=== PATIENT | female | born 1965 | race Caucasian/White ===

== ENCOUNTER 2019-02-24 10:04 | Emergency (ER) | payer OTHER ==
[2019-02-24 10:56] LABS: #Basophils 0.1 thou/uL (0.0-0.2); #Eosinphils 0.2 thou/uL (0.0-0.7); #Lymphocytes 2.6 thou/uL (1.20-3.40); #Monocytes 0.6 thou/uL (0.11-0.59); #Neutrophils 5.1 thou/uL (1.40-6.50); %Basophils 1.5 % (0.0-1.0); %Eosinophils 2.1 % (0.0-10.0); %Lymphocytes 30.5 % (21.0-51.0); %Monocytes 6.6 % (0.0-10.0); %Neutrophils 59.4 % (42.0-75.0); Hemoglobin 14.4 g/dL (12.0-16.0); Mean Corpuscular HGB CONC 34.8 g/dL (32.0-36.0); Mean Corpuscular Hemoglobin 31.7 pg (27.0-31.0); Mean Corpuscular Volume 90.9 fL (78.0-98.0); Mean Platelet Volume 7.1 fL (7.4-10.4); Platelet Count 249 thou/uL (130-400); RBC Distribution Width 12.1 % (11.5-14.5); Red Blood Cell (RBC) Count 4.55 mill/uL (4.20-5.40); White Blood Cell (WBC) Count 8.6 thou/uL (4.8-10.8)
[2019-02-24 11:19] LABS: ALT (SGPT) 18 U/L (8-55); AST (SGOT) 18 U/L (5-34); Alkaline Phosphatase 75 U/L (40-110); Anion Gap 12 mmol/L (10-20); BUN (Urea Nitrogen) 21 mg/dL (9.8-20.1); Bilirubin, Total 0.3 mg/dL (0.2-1.2); Calc. Creatinine Clearance 0 mL/min (70-130); Calcium 9.6 mg/dL (7.8-10.44); Carbon Dioxide 21 mmol/L (22-29); Chloride 105 mmol/L (98-107); Estimated GFR-MDRD 33; Globulin 3.4 g/dL (2.4-3.5); Glucose 99 mg/dL (70-105); Lipase 22 U/L (8-78); Potassium 4.3 mmol/L (3.5-5.1); Protein, Total 7.4 g/dL (6.0-8.3); Sodium 134 mmol/L (136-145)
[2019-02-24] MEDS ORDERED: Ondansetron PF 4 MG/2 ML Vial ONE (11:31)
[2019-02-24] MEDS ORDERED: Morphine 4 MG/ML VIAL ONE (11:31)
--- NOTE | 2019-02-24 12:36 | CT ---
EXAM: CT ABDOMEN AND PELVIS HISTORY: Evaluate for incarcerated left inguinal hernia. Left lower quadrant pain, when attempting a standard pick something up off the floor COMPARISON: None. Procedure: Multiple contiguous axial images were obtained and a CT of the abdomen and pelvis with IV contrast. C oronal reformats were performed. FINDINGS: Lower Chest: within normal limits. Vessels: Normal caliber aorta. No periaortic fat stranding Heart: Normal heart size. No significant pericardial fluid Abdomen: Portal vein:Patent Gallbladder: Surgically absent Liver: within normal limits. Pancreas: within normal limits. Spleen: within normal limits. Adrenals: within normal limits. Kidneys: Symmetric enhancement. No obstructive uropathy. Peritoneum: No ascites or free air, no fluid collection. Bowel: Limited evaluation due to lack of oral contrast administration. Slightly prominent proximal sm all bowel loops are nonspecific. Mid and distal small bowel loops are decompressed. Ileocecal junction is unremarkable. Normal caliber appendix. Scattered fecal material in a nondistended, nondil ated colon. Occasional diverticulum. No diverticulitis. Mesentery and Retroperitoneum: Nonspecific aortocaval lymph node measuring 0.7 cm Abdominal Wall: within normal limits. Pelvis: Reproductive Organs: Reproductive organs are unremarkable. Pelvis: No mass, lymphadenopathy, free air or free fluid. Bladder: within normal limits. No evidence of a left or right inguinal hernia Bones: Vacuum disc phenomenon in the lumbosacral junction IMPRESSION: 1. Slightly prominent proximal small bowel loops. Findings are nonspecific. Correlate for early or pa rtial obstructive process versus a developing ileus. 2. No evidence of a left or right inguinal hernia.
[2019-02-24 12:55] LABS: Bacteria/HPF None Seen HPF (None Seen); Bilirubin Negative (Negative); Blood, Urine Negative (Negative); Clarity Clear (Clear); Glucose, Urine (Dipstick) Normal (Negative); Leukocyte Negative Leu/uL (Negative); Nitrite Negative (Negative); Protein, Urine (Dipstick) 200 mg/dL (Neg-Trace); RBC/HPF 0-3 HPF (0-3); Urobilinogen Normal mg/dL (Less than 2)
== END 2019-02-24 14:07 | disposition home or self-care (01) ==
LOC: ERS 10:04
DX: R10.32 Left lower quadrant pain (principal); E03.9 Hypothyroidism, unspecified; I10 Essential (primary) hypertension; F41.9 Anxiety disorder, unspecified; Z79.82 Long term (current) use of aspirin; Z79.899 Other long term (current) drug therapy
CPT/HCPCS: 36415; 74177; 80053; 81003; 81015; 83690; 85025; 96361; 96374; 96375; J2270; J2405

== ENCOUNTER 2019-03-13 12:51 | Outpatient (CLI) | payer OTHER ==
--- NOTE | 2019-03-13 13:35 | ULT ---
Exam: Soft tissue ultrasound HISTORY: Left inguinal pain. Left groin pain after picking up a pill packet off of the floor. Painful knot left groin. Pain. Patient feels a knot. COMPARISON: None Correlation: Abdomen and pelvic CT 02/24/2019 FINDINGS: Targeted sonographic imaging of the left groin demonstrate a hypoechoic focus measuring 1.0 x 1.5 x 1 .3 cm. No significant vascular flow. There does not appear to be any connection with the left inguinal canal. Findings may represent a small hematoma or possible lymph node may be reactive or pos sibly necrotic. Correlation made with recent CT does not demonstrate definite lymphadenopathy or hematoma. As a conservative measure, follow-up imaging in 4-6 weeks is recommended to ensure resoluti on. If soft tissue lesion persists, consider ultrasound-guided biopsy. If there is concern for inguinal hernia, consider general surgical consultation. IMPRESSION: As above.
== END 2019-03-13 12:52 | disposition home or self-care (01) ==
LOC: SCSULT 12:51
PROVIDERS: ATTEND Family Medicine
DX: R10.32 Left lower quadrant pain (principal); M79.9 Soft tissue disorder, unspecified
CPT/HCPCS: 76999

== ENCOUNTER 2021-02-05 01:05 | Inpatient (IN) | payer OTHER, SELFPAY ==
[2021-02-05 02:17] LABS: Actual Bicarbonate (HCO3a) 19.7 mEq/L (22-28); Analyzer IN Cardio ER; CO2 Tension 50.4 mmHg (35.0-45.0); Calcium, Ionized (arterial) 1.15 mmol/L (1.12-1.30); Carboxyhemoglobin (COHb) 0.2 gm% (0.0-3.0); O2 Tension (PaO2), arterial 201.9 mmHg (80.0-100.0); Potassium - ABG Lab 3.39 mmol/L (3.70-5.30)
[2021-02-05 02:20] LABS: pH, Arterial 7.21 (7.35-7.45)
[2021-02-05 02:25] LABS: Puncture Site RRA
[2021-02-05 02:44] LABS: #Basophils 0.1 thou/uL (0.0-0.2); #Eosinphils 0.1 thou/uL (0.0-0.7); #Lymphocytes 0.8 thou/uL (1.20-3.40); #Monocytes 0.6 thou/uL (0.11-0.59); #Neutrophils 8.7 thou/uL (1.40-6.50); %Basophils 0.6 % (0.0-1.0); %Eosinophils 0.9 % (0.0-10.0); %Lymphocytes 8.1 % (21.0-51.0); %Monocytes 5.8 % (0.0-10.0); %Neutrophils 84.6 % (42.0-75.0); Hemoglobin 10.5 g/dL (12.0-16.0); Mean Corpuscular HGB CONC 34.5 g/dL (32.0-36.0); Mean Platelet Volume 7.2 fL (7.4-10.4); Platelet Count 232 thou/uL (130-400); RBC Distribution Width 12.6 % (11.5-14.5); White Blood Cell (WBC) Count 10.2 thou/uL (4.8-10.8)
[2021-02-05 02:56] LABS: SARS-CoV-2 NAA Rapid Test Not Detected (NotDetected)
[2021-02-05 02:58] LABS: ALT (SGPT) 15 U/L (8-55); AST (SGOT) 25 U/L (5-34); Alkaline Phosphatase 143 U/L (40-110); Anion Gap 13 mmol/L (10-20); BUN (Urea Nitrogen) 23 mg/dL (9.8-20.1); Bilirubin, Total 0.2 mg/dL (0.2-1.2); Calc. Creatinine Clearance 0 mL/min (70-130); Calcium 8.8 mg/dL (7.8-10.44); Carbon Dioxide 21 mmol/L (22-29); Chloride 107 mmol/L (98-107); Globulin 3.4 g/dL (2.4-3.5); Glucose 166 mg/dL (70-105); Magnesium 1.6 mg/dL (1.6-2.6); Potassium 4.2 mmol/L (3.5-5.1); Protein, Total 6.4 g/dL (6.0-8.3); Sodium 137 mmol/L (136-145)
[2021-02-05] MEDS ORDERED: Dextrose 50% Abboject 50 ML SYRINGE SLOW IVP PRN (04:10)
[2021-02-05] MEDS ORDERED: Acetaminophen 325 MG TAB PO PRN (04:10)
[2021-02-05] MEDS ORDERED: Acetaminophen 650 MG Suppository PR PRN (04:10)
[2021-02-05] MEDS ORDERED: HumaLOG 300 UNITS/3 ML VIAL SC PRN (04:10)
[2021-02-05] MEDS ORDERED: Dextrose 5% in Water 1,000 ML IV PRN (04:10)
[2021-02-05 07:34] LABS: Troponin I 0.039 ng/mL (< 0.028)
[2021-02-05] MEDS ORDERED: Midazolam HCl 2 mg/2 ml Vial ONE ×6 (11:14→11:37)
[2021-02-05] MEDS ORDERED: Midazolam HCl 5 mg/ml Vial ONE (11:14)
[2021-02-05] MEDS ORDERED: Midazolam HCl 2 mg/2 ml Vial SLOW IVP SCH (12:30)
[2021-02-05] MEDS ORDERED: ALPRAZolam 0.5 MG TAB PO PRN (15:35)
[2021-02-05] MEDS ORDERED: Pancrelipase DR 12,000 1 CAP PO SCH (15:45)
[2021-02-05] MEDS ORDERED: Lorazepam 2 MG/ML VIAL ONE (16:47)
[2021-02-05] MEDS ORDERED: Lorazepam 2 MG/ML VIAL SLOW IVP PRN (17:03)
[2021-02-05] MEDS: Sevelamer Carbonate 800 MG TAB PO SCH (18:37)
[2021-02-05] MEDS: Sodium Bicarbonate Tab 325 MG TAB PO SCH (21:24)
[2021-02-05] MEDS: Melatonin 3 MG TAB PO PRN (21:24)
[2021-02-05] MEDS: Famotidine 20 MG TAB PO SCH (21:24)
[2021-02-05] MEDS: Atorvastatin Calcium 40 MG TAB PO SCH (21:25)
[2021-02-05] MEDS: traZODone HCl 50 MG TAB PO PRN (21:25)
[2021-02-05] MEDS: HYDROcodone/Acetaminophen 5/325 mg Tablet PO PRN (21:25)
[2021-02-05] MEDS: ALPRAZolam 0.5 MG TAB PO SCH (21:25)
[2021-02-06] MEDS: Lorazepam 2 MG/ML VIAL SLOW IVP PRN (01:06)
[2021-02-06 03:55] LABS: #Eosinphils 0.1 thou/uL (0.0-0.7); #Lymphocytes 1.5 thou/uL (1.20-3.40); #Monocytes 0.5 thou/uL (0.11-0.59); #Neutrophils 5.6 thou/uL (1.40-6.50); %Basophils 0.2 % (0.0-1.0); %Eosinophils 0.8 % (0.0-10.0); %Neutrophils 72.1 % (42.0-75.0); Hemoglobin 10.1 g/dL (12.0-16.0); Mean Corpuscular HGB CONC 31.7 g/dL (32.0-36.0); Mean Corpuscular Hemoglobin 31.6 pg (27.0-31.0); Mean Corpuscular Volume 99.5 fL (78.0-98.0); Mean Platelet Volume 7.2 fL (7.4-10.4); Platelet Count 221 thou/uL (130-400); RBC Distribution Width 12.4 % (11.5-14.5); White Blood Cell (WBC) Count 7.7 thou/uL (4.8-10.8)
[2021-02-06 04:07] LABS: Phosphorus 3.7 mg/dL (2.3-4.7)
[2021-02-06 04:09] LABS: ALT (SGPT) 14 U/L (8-55); AST (SGOT) 19 U/L (5-34); Albumin 3.2 g/dL (3.5-5.0); Alkaline Phosphatase 135 U/L (40-110); Anion Gap 13 mmol/L (10-20); BUN (Urea Nitrogen) 22 mg/dL (9.8-20.1); Bilirubin, Total 0.6 mg/dL (0.2-1.2); Calc. Creatinine Clearance 68 mL/min (70-130); Calcium 9.7 mg/dL (7.8-10.44); Carbon Dioxide 23 mmol/L (22-29); Chloride 107 mmol/L (98-107); Globulin 3.7 g/dL (2.4-3.5); Glucose 130 mg/dL (70-105); Magnesium 1.7 mg/dL (1.6-2.6); Protein, Total 6.9 g/dL (6.0-8.3); Sodium 139 mmol/L (136-145)
[2021-02-06 08:45] LABS: Actual Bicarbonate (HCO3a) 25.5 mEq/L (22-28); Base Excess (BEa) 0.8 mEq/L (-2.0 to +3.0); CO2 Tension 41.5 mmHg (35.0-45.0); Calcium, Ionized (arterial) 1.23 mmol/L (1.12-1.30); Carboxyhemoglobin (COHb) 0.5 gm% (0.0-3.0); Hemoglobin (Hb) 10.1 g/dL (12.0-16.0); O2 Tension (PaO2), arterial 110.2 mmHg (80.0-100.0); Potassium - ABG Lab 4.03 mmol/L (3.70-5.30); pH, Arterial 7.41 (7.35-7.45)
[2021-02-06 08:47] LABS: Puncture Site RRA
[2021-02-06 08:48] LABS: ALV-art Gradient 123.125 mmHg (0-20)
[2021-02-06] MEDS: Sevelamer Carbonate 800 MG TAB PO SCH ×3 (08:52→17:30)
[2021-02-06] MEDS: FLUoxetine HCl 20 MG/5 ML UDCUP PO SCH (09:24)
[2021-02-06] MEDS: ALPRAZolam 0.5 MG TAB PO SCH ×3 (09:24→20:38)
[2021-02-06] MEDS: Gabapentin 300 MG CAP PO SCH (09:28)
[2021-02-06] MEDS: Cefepime 1 GM in Sodium Chloride 0.9% 100 ML IVPB SCH ×2 (09:31→20:38)
[2021-02-06] MEDS: Sodium Bicarbonate Tab 325 MG TAB PO SCH ×2 (09:31→20:36)
[2021-02-06] MEDS: HYDROcodone/Acetaminophen 5/325 mg Tablet PO PRN ×2 (11:47→20:36)
[2021-02-06] MEDS ORDERED: hydrALAZINE 20 MG/ML VIAL SLOW IVP PRN ×2 (16:37→16:47)
[2021-02-06] MEDS ORDERED: Amlodipine 10 MG TAB PO SCH (16:45)
[2021-02-06] MEDS: Heparin 5,000 UNITS/ML VIAL SC SCH (17:29)
[2021-02-06] MEDS: Melatonin 3 MG TAB PO PRN (20:38)
[2021-02-06] MEDS: Atorvastatin Calcium 40 MG TAB PO SCH (20:38)
[2021-02-06] MEDS: Famotidine 20 MG TAB PO SCH (20:38)
[2021-02-06] MEDS: traZODone HCl 50 MG TAB PO PRN (20:48)
[2021-02-07] MEDS: Heparin 5,000 UNITS/ML VIAL SC SCH ×4 (00:29→23:23)
[2021-02-07] MEDS: Lorazepam 2 MG/ML VIAL SLOW IVP PRN ×2 (00:30→07:36)
[2021-02-07] MEDS: HYDROcodone/Acetaminophen 5/325 mg Tablet PO PRN ×3 (00:31→19:50)
[2021-02-07 04:12] LABS: #Eosinphils 0.3 thou/uL (0.0-0.7); #Lymphocytes 2.2 thou/uL (1.20-3.40); #Monocytes 0.6 thou/uL (0.11-0.59); #Neutrophils 4.9 thou/uL (1.40-6.50); %Basophils 0.5 % (0.0-1.0); %Eosinophils 4.2 % (0.0-10.0); %Lymphocytes 26.7 % (21.0-51.0); %Monocytes 7.7 % (0.0-10.0); Hemoglobin 10.6 g/dL (12.0-16.0); Mean Corpuscular HGB CONC 33.9 g/dL (32.0-36.0); Mean Corpuscular Hemoglobin 33.2 pg (27.0-31.0); Mean Corpuscular Volume 97.9 fL (78.0-98.0); Mean Platelet Volume 7.1 fL (7.4-10.4); Platelet Count 228 thou/uL (130-400); RBC Distribution Width 12.2 % (11.5-14.5); Red Blood Cell (RBC) Count 3.19 mill/uL (4.20-5.40); White Blood Cell (WBC) Count 8.1 thou/uL (4.8-10.8)
[2021-02-07 04:34] LABS: ALT (SGPT) 14 U/L (8-55); AST (SGOT) 18 U/L (5-34); Albumin 3.2 g/dL (3.5-5.0); Alkaline Phosphatase 143 U/L (40-110); Anion Gap 12 mmol/L (10-20); BUN (Urea Nitrogen) 19 mg/dL (9.8-20.1); Bilirubin, Total 0.6 mg/dL (0.2-1.2); Calc. Creatinine Clearance 79 mL/min (70-130); Carbon Dioxide 25 mmol/L (22-29); Chloride 103 mmol/L (98-107); Globulin 3.9 g/dL (2.4-3.5); Glucose 142 mg/dL (70-105); Magnesium 1.7 mg/dL (1.6-2.6); Phosphorus 4.2 mg/dL (2.3-4.7); Potassium 3.7 mmol/L (3.5-5.1); Protein, Total 7.1 g/dL (6.0-8.3); Sodium 136 mmol/L (136-145)
[2021-02-07] MEDS: Sevelamer Carbonate 800 MG TAB PO SCH ×3 (07:36→16:11)
[2021-02-07] MEDS: Amlodipine 10 MG TAB PO SCH (09:23)
[2021-02-07] MEDS: Gabapentin 300 MG CAP PO SCH (09:23)
[2021-02-07] MEDS: ALPRAZolam 0.5 MG TAB PO SCH ×3 (09:24→19:50)
[2021-02-07] MEDS: FLUoxetine HCl 20 MG/5 ML UDCUP PO SCH (09:29)
[2021-02-07] MEDS: Sodium Bicarbonate Tab 325 MG TAB PO SCH ×2 (09:30→19:49)
[2021-02-07] MEDS: Cefepime 1 GM in Sodium Chloride 0.9% 100 ML IVPB SCH ×2 (09:45→19:56)
[2021-02-07 15:48] VITALS: BMI 44.1
[2021-02-07] MEDS: Famotidine 20 MG TAB PO SCH (19:49)
[2021-02-07] MEDS: Atorvastatin Calcium 40 MG TAB PO SCH (19:50)
[2021-02-08] MEDS: Lorazepam 2 MG/ML VIAL SLOW IVP PRN (02:33)
[2021-02-08] MEDS: HYDROcodone/Acetaminophen 5/325 mg Tablet PO PRN ×2 (04:02→20:09)
[2021-02-08] MEDS: ALPRAZolam 0.5 MG TAB PO SCH ×3 (08:36→20:04)
[2021-02-08] MEDS: Sevelamer Carbonate 800 MG TAB PO SCH ×3 (08:36→18:34)
[2021-02-08] MEDS: Sodium Bicarbonate Tab 325 MG TAB PO SCH ×2 (08:36→20:04)
[2021-02-08] MEDS: Amlodipine 10 MG TAB PO SCH (08:36)
[2021-02-08] MEDS: Cefepime 1 GM in Sodium Chloride 0.9% 100 ML IVPB SCH ×2 (08:37→20:04)
[2021-02-08] MEDS: Gabapentin 300 MG CAP PO SCH (08:53)
[2021-02-08] MEDS: FLUoxetine HCl 20 MG/5 ML UDCUP PO SCH (11:23)
[2021-02-08] MEDS: Heparin 5,000 UNITS/ML VIAL SC SCH ×2 (11:24→20:03)
[2021-02-08] MEDS: HumaLOG 300 UNITS/3 ML VIAL SC PRN (11:38)
[2021-02-08] MEDS ORDERED: Pancrelipase DR 12,000 1 CAP FS SCH (12:45)
[2021-02-08] MEDS ORDERED: Sodium Bicarbonate Tab 325 MG TAB PER TUBE SCH (12:45)
[2021-02-08 17:43] LABS: #Basophils 0.1 thou/uL (0.0-0.2); #Eosinphils 0.3 thou/uL (0.0-0.7); #Lymphocytes 1.9 thou/uL (1.20-3.40); #Monocytes 0.5 thou/uL (0.11-0.59); #Neutrophils 5.5 thou/uL (1.40-6.50); %Basophils 0.9 % (0.0-1.0); %Monocytes 6.3 % (0.0-10.0); %Neutrophils 65.9 % (42.0-75.0); Hemoglobin 11.1 g/dL (12.0-16.0); Mean Corpuscular HGB CONC 33.9 g/dL (32.0-36.0); Mean Corpuscular Hemoglobin 32.9 pg (27.0-31.0); Mean Corpuscular Volume 96.9 fL (78.0-98.0); Platelet Count 286 thou/uL (130-400); Red Blood Cell (RBC) Count 3.38 mill/uL (4.20-5.40); White Blood Cell (WBC) Count 8.3 thou/uL (4.8-10.8)
[2021-02-08 17:57] LABS: ALT (SGPT) 18 U/L (8-55); AST (SGOT) 20 U/L (5-34); Albumin 3.5 g/dL (3.5-5.0); Alkaline Phosphatase 157 U/L (40-110); Anion Gap 14 mmol/L (10-20); BUN (Urea Nitrogen) 19 mg/dL (9.8-20.1); Bilirubin, Total 0.4 mg/dL (0.2-1.2); Calc. Creatinine Clearance 89 mL/min (70-130); Calcium 9.7 mg/dL (7.8-10.44); Carbon Dioxide 27 mmol/L (22-29); Chloride 101 mmol/L (98-107); Globulin 3.7 g/dL (2.4-3.5); Glucose 124 mg/dL (70-105); Magnesium 1.7 mg/dL (1.6-2.6); Phosphorus 4.6 mg/dL (2.3-4.7); Potassium 3.9 mmol/L (3.5-5.1); Protein, Total 7.2 g/dL (6.0-8.3); Sodium 138 mmol/L (136-145)
[2021-02-08] MEDS: Atorvastatin Calcium 40 MG TAB PO SCH (20:04)
[2021-02-08] MEDS: Famotidine 20 MG TAB PO SCH (20:04)
[2021-02-08] MEDS: Melatonin 3 MG TAB PO PRN (20:07)
[2021-02-09] MEDS: HYDROcodone/Acetaminophen 5/325 mg Tablet PO PRN ×5 (01:01→22:50)
[2021-02-09] MEDS: traZODone HCl 50 MG TAB PO PRN ×2 (01:01→19:58)
[2021-02-09] MEDS: Heparin 5,000 UNITS/ML VIAL SC SCH ×3 (04:19→19:59)
[2021-02-09 06:24] LABS: #Eosinphils 0.3 thou/uL (0.0-0.7); #Lymphocytes 1.8 thou/uL (1.20-3.40); #Monocytes 0.5 thou/uL (0.11-0.59); #Neutrophils 5.1 thou/uL (1.40-6.50); %Basophils 0.6 % (0.0-1.0); %Eosinophils 4.1 % (0.0-10.0); %Lymphocytes 23.3 % (21.0-51.0); %Monocytes 6.7 % (0.0-10.0); %Neutrophils 65.2 % (42.0-75.0); Hemoglobin 10.9 g/dL (12.0-16.0); Mean Corpuscular HGB CONC 33.3 g/dL (32.0-36.0); Mean Corpuscular Hemoglobin 31.8 pg (27.0-31.0); Mean Corpuscular Volume 95.6 fL (78.0-98.0); Platelet Count 275 thou/uL (130-400); Red Blood Cell (RBC) Count 3.42 mill/uL (4.20-5.40); White Blood Cell (WBC) Count 7.8 thou/uL (4.8-10.8)
[2021-02-09] MEDS: HumaLOG 300 UNITS/3 ML VIAL SC PRN ×2 (06:40→12:57)
[2021-02-09 06:51] LABS: Anion Gap 15 mmol/L (10-20); BUN (Urea Nitrogen) 22 mg/dL (9.8-20.1); Calc. Creatinine Clearance 86 mL/min (70-130); Calcium 9.5 mg/dL (7.8-10.44); Carbon Dioxide 27 mmol/L (22-29); Chloride 99 mmol/L (98-107); Glucose 187 mg/dL (70-105); Potassium 3.9 mmol/L (3.5-5.1); Sodium 137 mmol/L (136-145)
[2021-02-09] MEDS: ALPRAZolam 0.5 MG TAB PO SCH ×3 (09:20→19:58)
[2021-02-09] MEDS: Sodium Bicarbonate Tab 325 MG TAB PO SCH ×2 (09:20→19:58)
[2021-02-09] MEDS: Sevelamer Carbonate 800 MG TAB PO SCH ×3 (09:20→17:41)
[2021-02-09] MEDS: FLUoxetine HCl 20 MG/5 ML UDCUP PO SCH (09:20)
[2021-02-09] MEDS: Amlodipine 10 MG TAB PO SCH (09:20)
[2021-02-09] MEDS: Gabapentin 300 MG CAP PO SCH (09:20)
[2021-02-09] MEDS: Cefepime 1 GM in Sodium Chloride 0.9% 100 ML IVPB SCH ×2 (09:21→19:55)
[2021-02-09] MEDS: Lorazepam 2 MG/ML VIAL SLOW IVP PRN (12:52)
[2021-02-09] MEDS: Atorvastatin Calcium 40 MG TAB PO SCH (19:56)
[2021-02-09] MEDS: Famotidine 20 MG TAB PO SCH (19:59)
[2021-02-09] MEDS: Melatonin 3 MG TAB PO PRN (22:50)
[2021-02-10] MEDS: Heparin 5,000 UNITS/ML VIAL SC SCH ×3 (04:19→20:46)
[2021-02-10] MEDS: HYDROcodone/Acetaminophen 5/325 mg Tablet PO PRN ×4 (04:19→22:05)
[2021-02-10] MEDS: HumaLOG 300 UNITS/3 ML VIAL SC PRN ×2 (05:52→12:18)
[2021-02-10 06:58] LABS: #Eosinphils 0.4 thou/uL (0.0-0.7); #Lymphocytes 2.2 thou/uL (1.20-3.40); #Monocytes 0.5 thou/uL (0.11-0.59); #Neutrophils 5.2 thou/uL (1.40-6.50); %Basophils 0.2 % (0.0-1.0); %Eosinophils 4.5 % (0.0-10.0); %Lymphocytes 26.5 % (21.0-51.0); %Monocytes 5.5 % (0.0-10.0); %Neutrophils 63.4 % (42.0-75.0); Hemoglobin 11.6 g/dL (12.0-16.0); Mean Corpuscular HGB CONC 34.2 g/dL (32.0-36.0); Mean Corpuscular Volume 96.4 fL (78.0-98.0); Mean Platelet Volume 7.1 fL (7.4-10.4); Platelet Count 285 thou/uL (130-400); RBC Distribution Width 12.2 % (11.5-14.5); Red Blood Cell (RBC) Count 3.52 mill/uL (4.20-5.40); White Blood Cell (WBC) Count 8.2 thou/uL (4.8-10.8)
[2021-02-10 07:18] LABS: Anion Gap 14 mmol/L (10-20); BUN (Urea Nitrogen) 30 mg/dL (9.8-20.1); Calc. Creatinine Clearance 81 mL/min (70-130); Calcium 9.6 mg/dL (7.8-10.44); Carbon Dioxide 27 mmol/L (22-29); Chloride 100 mmol/L (98-107); Glucose 224 mg/dL (70-105); Potassium 4.3 mmol/L (3.5-5.1); Sodium 137 mmol/L (136-145)
[2021-02-10] MEDS: Amlodipine 10 MG TAB PO SCH (09:24)
[2021-02-10] MEDS: ALPRAZolam 0.5 MG TAB PO SCH ×3 (09:24→20:46)
[2021-02-10] MEDS: Gabapentin 300 MG CAP PO SCH ×3 (09:24→20:46)
[2021-02-10] MEDS: Sodium Bicarbonate Tab 325 MG TAB PO SCH ×2 (09:24→20:46)
[2021-02-10] MEDS: FLUoxetine HCl 20 MG/5 ML UDCUP PO SCH (09:26)
[2021-02-10] MEDS: Cefepime 1 GM in Sodium Chloride 0.9% 100 ML IVPB SCH ×2 (09:26→20:47)
[2021-02-10] MEDS: Sevelamer Carbonate 800 MG TAB PO SCH ×3 (09:28→17:00)
[2021-02-10] MEDS: Scopolamine 1.5 mg/72 hour Patch TD SCH (13:40)
[2021-02-10] MEDS: Famotidine 20 MG TAB PO SCH (20:46)
[2021-02-10] MEDS: Atorvastatin Calcium 40 MG TAB PO SCH (20:46)
[2021-02-11] MEDS: HYDROcodone/Acetaminophen 5/325 mg Tablet PO PRN ×2 (03:00→21:39)
[2021-02-11] MEDS: Lorazepam 2 MG/ML VIAL SLOW IVP PRN (03:01)
[2021-02-11] MEDS: Heparin 5,000 UNITS/ML VIAL SC SCH ×3 (05:35→21:38)
[2021-02-11 06:08] LABS: #Eosinphils 0.4 thou/uL (0.0-0.7); #Lymphocytes 2.1 thou/uL (1.20-3.40); #Monocytes 0.5 thou/uL (0.11-0.59); #Neutrophils 5.6 thou/uL (1.40-6.50); %Basophils 0.5 % (0.0-1.0); %Eosinophils 5.1 % (0.0-10.0); %Lymphocytes 23.7 % (21.0-51.0); %Monocytes 6.2 % (0.0-10.0); %Neutrophils 64.5 % (42.0-75.0); Hemoglobin 11.5 g/dL (12.0-16.0); Mean Corpuscular HGB CONC 33.7 g/dL (32.0-36.0); Mean Corpuscular Hemoglobin 32.7 pg (27.0-31.0); Mean Platelet Volume 7.3 fL (7.4-10.4); Platelet Count 313 thou/uL (130-400); RBC Distribution Width 12.1 % (11.5-14.5); Red Blood Cell (RBC) Count 3.52 mill/uL (4.20-5.40); White Blood Cell (WBC) Count 8.7 thou/uL (4.8-10.8)
[2021-02-11 06:27] LABS: Anion Gap 15 mmol/L (10-20); BUN (Urea Nitrogen) 31 mg/dL (9.8-20.1); Calc. Creatinine Clearance 80 mL/min (70-130); Calcium 10.1 mg/dL (7.8-10.44); Carbon Dioxide 27 mmol/L (22-29); Chloride 100 mmol/L (98-107); Glucose 182 mg/dL (70-105); Potassium 4.1 mmol/L (3.5-5.1); Sodium 138 mmol/L (136-145)
[2021-02-11] MEDS: Cefepime 1 GM in Sodium Chloride 0.9% 100 ML IVPB SCH ×2 (07:33→21:40)
[2021-02-11] MEDS: Amlodipine 10 MG TAB PO SCH (07:36)
[2021-02-11] MEDS: ALPRAZolam 0.5 MG TAB PO SCH ×3 (07:36→21:40)
[2021-02-11] MEDS: Gabapentin 300 MG CAP PO SCH ×3 (07:37→21:39)
[2021-02-11] MEDS: Sodium Bicarbonate Tab 325 MG TAB PO SCH ×2 (07:37→21:40)
[2021-02-11] MEDS: Sevelamer Carbonate 800 MG TAB PO SCH ×3 (07:37→17:40)
[2021-02-11] MEDS: FLUoxetine HCl 20 MG/5 ML UDCUP PO SCH (07:40)
[2021-02-11] MEDS ORDERED: Sodium Bicarbonate Tab 325 MG TAB PER TUBE PRN (13:45)
[2021-02-11] MEDS ORDERED: Pancrelipase DR 12,000 1 CAP FS PRN (13:45)
[2021-02-11] MEDS: Atorvastatin Calcium 40 MG TAB PO SCH (21:38)
[2021-02-11] MEDS: Famotidine 20 MG TAB PO SCH (21:39)
[2021-02-11] MEDS: traZODone HCl 50 MG TAB PO PRN (22:30)
[2021-02-11] MEDS: Melatonin 3 MG TAB PO PRN (22:30)
[2021-02-12] MEDS: Heparin 5,000 UNITS/ML VIAL SC SCH ×3 (04:11→21:38)
[2021-02-12] MEDS: HYDROcodone/Acetaminophen 5/325 mg Tablet PO PRN ×5 (04:12→21:37)
[2021-02-12 06:40] LABS: #Basophils 0.1 thou/uL (0.0-0.2); #Eosinphils 0.4 thou/uL (0.0-0.7); #Lymphocytes 1.9 thou/uL (1.20-3.40); #Monocytes 0.5 thou/uL (0.11-0.59); #Neutrophils 4.9 thou/uL (1.40-6.50); %Eosinophils 4.7 % (0.0-10.0); %Lymphocytes 24.9 % (21.0-51.0); %Neutrophils 63.4 % (42.0-75.0); Hemoglobin 10.9 g/dL (12.0-16.0); Mean Corpuscular HGB CONC 35.5 g/dL (32.0-36.0); Mean Corpuscular Hemoglobin 34.1 pg (27.0-31.0); Mean Corpuscular Volume 96.1 fL (78.0-98.0); Mean Platelet Volume 7.1 fL (7.4-10.4); Platelet Count 289 thou/uL (130-400); RBC Distribution Width 12.1 % (11.5-14.5); Red Blood Cell (RBC) Count 3.19 mill/uL (4.20-5.40); White Blood Cell (WBC) Count 7.7 thou/uL (4.8-10.8)
[2021-02-12 06:55] LABS: Anion Gap 14 mmol/L (10-20); BUN (Urea Nitrogen) 32 mg/dL (9.8-20.1); Calc. Creatinine Clearance 81 mL/min (70-130); Calcium 10.3 mg/dL (7.8-10.44); Carbon Dioxide 27 mmol/L (22-29); Chloride 102 mmol/L (98-107); Glucose 179 mg/dL (70-105); Potassium 4.1 mmol/L (3.5-5.1); Sodium 139 mmol/L (136-145)
[2021-02-12] MEDS: Sevelamer Carbonate 800 MG TAB PO SCH ×3 (08:38→16:11)
[2021-02-12] MEDS: Sodium Bicarbonate Tab 325 MG TAB PO SCH ×2 (08:38→21:36)
[2021-02-12] MEDS: Gabapentin 300 MG CAP PO SCH ×3 (08:38→21:38)
[2021-02-12] MEDS: ALPRAZolam 0.5 MG TAB PO SCH ×3 (08:39→21:36)
[2021-02-12] MEDS: FLUoxetine HCl 20 MG/5 ML UDCUP PO SCH (08:39)
[2021-02-12] MEDS: Cefepime 1 GM in Sodium Chloride 0.9% 100 ML IVPB SCH (08:39)
[2021-02-12] MEDS: Amlodipine 10 MG TAB PO SCH (08:39)
[2021-02-12] MEDS: Atorvastatin Calcium 40 MG TAB PO SCH (21:36)
[2021-02-12] MEDS: Famotidine 20 MG TAB PO SCH (21:36)
[2021-02-12] MEDS: traZODone HCl 50 MG TAB PO PRN (21:37)
[2021-02-13 01:05] LABS: SARS-CoV-2 PCR by NAA Not Detected (NotDetected)
[2021-02-13] MEDS: Heparin 5,000 UNITS/ML VIAL SC SCH ×3 (03:45→19:58)
[2021-02-13 06:03] LABS: #Basophils 0.1 thou/uL (0.0-0.2); #Eosinphils 0.4 thou/uL (0.0-0.7); #Lymphocytes 2.4 thou/uL (1.20-3.40); #Monocytes 0.6 thou/uL (0.11-0.59); #Neutrophils 5.9 thou/uL (1.40-6.50); %Basophils 0.7 % (0.0-1.0); %Lymphocytes 25.6 % (21.0-51.0); %Monocytes 6.3 % (0.0-10.0); %Neutrophils 63.3 % (42.0-75.0); Hemoglobin 11.2 g/dL (12.0-16.0); Mean Corpuscular HGB CONC 32.3 g/dL (32.0-36.0); Mean Corpuscular Hemoglobin 30.8 pg (27.0-31.0); Mean Corpuscular Volume 95.4 fL (78.0-98.0); Mean Platelet Volume 7.6 fL (7.4-10.4); Platelet Count 286 thou/uL (130-400); RBC Distribution Width 12.2 % (11.5-14.5); Red Blood Cell (RBC) Count 3.65 mill/uL (4.20-5.40); White Blood Cell (WBC) Count 9.3 thou/uL (4.8-10.8)
[2021-02-13 06:22] LABS: Anion Gap 12 mmol/L (10-20); BUN (Urea Nitrogen) 32 mg/dL (9.8-20.1); Calc. Creatinine Clearance 82 mL/min (70-130); Calcium 10.6 mg/dL (7.8-10.44); Carbon Dioxide 29 mmol/L (22-29); Chloride 99 mmol/L (98-107); Glucose 162 mg/dL (70-105); Potassium 4.2 mmol/L (3.5-5.1); Sodium 136 mmol/L (136-145)
[2021-02-13] MEDS: Sevelamer Carbonate 800 MG TAB PO SCH ×3 (08:11→17:16)
[2021-02-13] MEDS: Gabapentin 300 MG CAP PO SCH ×3 (08:11→19:57)
[2021-02-13] MEDS: ALPRAZolam 0.5 MG TAB PO SCH ×3 (08:13→19:56)
[2021-02-13] MEDS: Sodium Bicarbonate Tab 325 MG TAB PO SCH ×2 (08:14→19:57)
[2021-02-13] MEDS: Amlodipine 10 MG TAB PO SCH (08:17)
[2021-02-13] MEDS: FLUoxetine HCl 20 MG/5 ML UDCUP PO SCH (08:59)
[2021-02-13] MEDS ORDERED: Lorazepam 2 MG/ML VIAL SLOW IVP PRN (12:54)
[2021-02-13] MEDS: Scopolamine 1.5 mg/72 hour Patch TD SCH (13:28)
[2021-02-13] MEDS: Morphine 2 MG/ML VIAL SLOW IVP PRN ×2 (13:28→21:02)
[2021-02-13] MEDS: Atorvastatin Calcium 40 MG TAB PO SCH (19:57)
[2021-02-13] MEDS: Famotidine 20 MG TAB PO SCH (19:57)
[2021-02-14] MEDS: Morphine 2 MG/ML VIAL SLOW IVP PRN ×2 (00:30→03:56)
[2021-02-14] MEDS: FLUoxetine HCl 20 MG/5 ML UDCUP PO SCH (08:41)
[2021-02-14] MEDS: Amlodipine 10 MG TAB PO SCH (08:41)
[2021-02-14] MEDS: ALPRAZolam 0.5 MG TAB PO SCH ×3 (08:41→20:30)
[2021-02-14] MEDS: Gabapentin 300 MG CAP PO SCH ×3 (08:41→20:30)
[2021-02-14] MEDS: Sodium Bicarbonate Tab 325 MG TAB PO SCH ×2 (08:41→20:31)
[2021-02-14] MEDS: Sevelamer Carbonate 800 MG TAB PO SCH ×2 (08:41→17:41)
[2021-02-14] MEDS ORDERED: PROPOFOL 200 MG/20 ML VIAL ONE (10:39)
[2021-02-14] MEDS ORDERED: Ondansetron PF 4 MG/2 ML Vial ONE (11:24)
[2021-02-14] MEDS: Heparin 5,000 UNITS/ML VIAL SC SCH ×2 (17:41→20:31)
[2021-02-14] MEDS: Melatonin 3 MG TAB PO PRN (20:30)
[2021-02-14] MEDS: Famotidine 20 MG TAB PO SCH (20:31)
[2021-02-14] MEDS: Atorvastatin Calcium 40 MG TAB PO SCH (20:31)
[2021-02-15] MEDS: Sevelamer Carbonate 800 MG TAB PO SCH ×3 (08:24→16:58)
[2021-02-15] MEDS: Amlodipine 10 MG TAB PO SCH (08:24)
[2021-02-15] MEDS: Sodium Bicarbonate Tab 325 MG TAB PO SCH ×2 (08:24→20:26)
[2021-02-15] MEDS: Gabapentin 300 MG CAP PO SCH ×3 (08:25→20:28)
[2021-02-15] MEDS: ALPRAZolam 0.5 MG TAB PO SCH ×3 (08:26→20:27)
[2021-02-15] MEDS: HYDROcodone/Acetaminophen 5/325 mg Tablet PO PRN (08:34)
[2021-02-15] MEDS: FLUoxetine HCl 20 MG/5 ML UDCUP PO SCH (08:34)
[2021-02-15] MEDS: Heparin 5,000 UNITS/ML VIAL SC SCH ×3 (11:49→20:57)
[2021-02-15] MEDS: Morphine 2 MG/ML VIAL SLOW IVP PRN (20:22)
[2021-02-15] MEDS: Atorvastatin Calcium 40 MG TAB PO SCH (20:28)
[2021-02-15] MEDS: Famotidine 20 MG TAB PO SCH (20:28)
[2021-02-15] MEDS: Melatonin 3 MG TAB PO PRN (20:42)
[2021-02-16] MEDS: Heparin 5,000 UNITS/ML VIAL SC SCH ×2 (04:35→12:30)
[2021-02-16] MEDS: Morphine 2 MG/ML VIAL SLOW IVP PRN ×2 (04:36→08:51)
[2021-02-16] MEDS: Sodium Bicarbonate Tab 325 MG TAB PO SCH (08:47)
[2021-02-16] MEDS: FLUoxetine HCl 20 MG/5 ML UDCUP PO SCH (08:47)
[2021-02-16] MEDS: Amlodipine 10 MG TAB PO SCH (08:48)
[2021-02-16] MEDS: Sevelamer Carbonate 800 MG TAB PO SCH (08:48)
[2021-02-16] MEDS: ALPRAZolam 0.5 MG TAB PO SCH (08:48)
[2021-02-16] MEDS: Gabapentin 300 MG CAP PO SCH (08:48)
[2021-02-16] MEDS: Scopolamine 1.5 mg/72 hour Patch TD SCH (12:37)
[2021-02-16 13:28] VITALS: BP 137/75; TEMP 98.4
== END 2021-02-16 12:52 | DRG 208 ==
LOC: ERS 01:05 → CCU 04:32 → T4-A 02-07 18:55
PROVIDERS: ADMIT Student in an Organized Health Care Education/Training Program; ATTEND Family Medicine
PROC: 5A1945Z Respiratory Ventilation, 24-96 Consecutive Hours (ICD-10-PCS; principal; 2021-02-05)
PROC: 0B21XFZ Change Tracheostomy Device in Trachea, External Approach (ICD-10-PCS; 2021-02-05)
PROC: 0BJ08ZZ Inspection of Tracheobronchial Tree, Via Natural or Artificial Opening Endoscopic (ICD-10-PCS; 2021-02-05)
PROC: 0DH63UZ Insertion of Feeding Device into Stomach, Percutaneous Approach (ICD-10-PCS; 2021-02-14)
DX: J95.03 Malfunction of tracheostomy stoma (principal); J96.21 Acute and chronic respiratory failure with hypoxia; J81.0 Acute pulmonary edema; J15.9 Unspecified bacterial pneumonia; Z68.41 Body mass index [BMI] 40.0-44.9, adult; N17.9 Acute kidney failure, unspecified; Y83.8 Other surgical procedures as the cause of abnormal reaction of the patient, or of later complication, without mention of misadventure at the time of the procedure; Z20.822 Contact with and (suspected) exposure to COVID-19; E78.5 Hyperlipidemia, unspecified; E78.00 Pure hypercholesterolemia, unspecified; E03.9 Hypothyroidism, unspecified; I10 Essential (primary) hypertension; I16.0 Hypertensive urgency; I95.9 Hypotension, unspecified; D64.9 Anemia, unspecified; F41.9 Anxiety disorder, unspecified; T17.990A Other foreign object in respiratory tract, part unspecified in causing asphyxiation, initial encounter; E66.9 Obesity, unspecified; E11.40 Type 2 diabetes mellitus with diabetic neuropathy, unspecified; R13.12 Dysphagia, oropharyngeal phase; E11.65 Type 2 diabetes mellitus with hyperglycemia; Z88.8 Allergy status to other drugs, medicaments and biological substances; Z79.82 Long term (current) use of aspirin; Z79.899 Other long term (current) drug therapy; Z79.890 Hormone replacement therapy; Z79.4 Long term (current) use of insulin; Z79.51 Long term (current) use of inhaled steroids; Z86.16 Personal history of COVID-19; Z90.49 Acquired absence of other specified parts of digestive tract; Z87.891 Personal history of nicotine dependence; I25.2 Old myocardial infarction
CPT/HCPCS: 36415; 36416; 36600; 71045; 74018; 74230; 80048; 80053; 82805; 83735; 83880; 84100; 84484; 85025; 87070; 87205; 93005; 94002; 94003; 94640; 96374; J0690; J0692; J1644; J1815; J2060; J2250; J2270; J2405; J2704; J3490; U0002; U0003; U0005

== ENCOUNTER 2021-02-24 18:14 | Inpatient (IN) | payer OTHER, SELFPAY ==
[~2021-02-24 18:14] MED LIST: Iopamidol-370 76% 500 ML 1 ML ONE
[2021-02-24] MEDS ORDERED: Norepinephrine 8 MG/0.9% NS 250 ML ONE (18:25)
[2021-02-24] MEDS ORDERED: Fentanyl CADD 100 ML IV SCH (18:30)
[2021-02-24] MEDS ORDERED: Dexamethasone 10 MG/ML VIAL ONE (18:31)
[2021-02-24 18:43] LABS: #Basophils 0.1 thou/uL (0.0-0.2); #Eosinphils 0.2 thou/uL (0.0-0.7); #Lymphocytes 1.8 thou/uL (1.20-3.40); #Monocytes 0.6 thou/uL (0.11-0.59); #Neutrophils 8.8 thou/uL (1.40-6.50); %Basophils 0.7 % (0.0-1.0); %Eosinophils 1.6 % (0.0-10.0); %Lymphocytes 15.7 % (21.0-51.0); %Monocytes 5.4 % (0.0-10.0); %Neutrophils 76.7 % (42.0-75.0); Hemoglobin 12.2 g/dL (12.0-16.0); Mean Corpuscular HGB CONC 32.9 g/dL (32.0-36.0); Mean Corpuscular Hemoglobin 31.4 pg (27.0-31.0); Mean Corpuscular Volume 95.4 fL (78.0-98.0); Mean Platelet Volume 7.5 fL (7.4-10.4); Platelet Count 393 thou/uL (130-400); RBC Distribution Width 12.4 % (11.5-14.5); White Blood Cell (WBC) Count 11.5 thou/uL (4.8-10.8)
[2021-02-24 18:53] LABS: ALT (SGPT) 37 U/L (8-55); AST (SGOT) 69 U/L (5-34); Albumin 3.8 g/dL (3.5-5.0); Alkaline Phosphatase 252 U/L (40-110); Anion Gap 15 mmol/L (10-20); BUN (Urea Nitrogen) 40 mg/dL (9.8-20.1); Bilirubin, Total 0.3 mg/dL (0.2-1.2); Calc. Creatinine Clearance 0 mL/min (70-130); Calcium 10.3 mg/dL (7.8-10.44); Carbon Dioxide 28 mmol/L (22-29); Chloride 97 mmol/L (98-107); Globulin 4.3 g/dL (2.4-3.5); Glucose 226 mg/dL (70-105); Potassium 3.3 mmol/L (3.5-5.1); Protein, Total 8.1 g/dL (6.0-8.3); Sodium 137 mmol/L (136-145)
[2021-02-24] MEDS ORDERED: Propofol 1,000 MG/100 ML VIAL IV ONE (19:04)
[2021-02-24 19:07] LABS: Analyzer IN Cardio ER; CO2 Tension 42.2 mmHg (35.0-45.0); Calcium, Ionized (arterial) 1.21 mmol/L (1.12-1.30); Carboxyhemoglobin (COHb) 0.1 gm% (0.0-3.0); Hemoglobin (Hb) 14.4 g/dL (12.0-16.0); O2 Tension (PaO2), arterial 207.4 mmHg (80.0-100.0); Potassium - ABG Lab 3.19 mmol/L (3.70-5.30); pH, Arterial 7.39 (7.35-7.45)
[2021-02-24 19:13] LABS: Puncture Site RRA
[2021-02-24 19:22] LABS: Bacteria/HPF None Seen HPF (None Seen); Bilirubin Negative (Negative); Blood, Urine Negative (Negative); Clarity Clear (Clear); Glucose, Urine (Dipstick) Normal (Negative); Ketone, Urine Negative (Negative); Leukocyte Negative Leu/uL (Negative); Nitrite Negative (Negative); Protein, Urine (Dipstick) 200 mg/dL (Neg-Trace); RBC/HPF 0-3 HPF (0-3); Specific Gravity, Urine 1.013 (1.002-1.036); Squamous Epithelial 0-3 HPF (0-3); Urobilinogen Normal mg/dL (Less than 2); WBC/HPF 0-3 HPF (0-3); pH, Urine 6.5 (5.0-9.0)
[2021-02-24] MEDS ORDERED: Vancomycin 1 GM/200 ML BAG ONE (20:05)
[2021-02-24] MEDS ORDERED: Piperacillin/Tazobactam 4.5 GM in Sodium Chloride 0.9% 100 ML IVPB SCH (20:15)
[2021-02-24] MEDS ORDERED: Ondansetron ODT 4 MG TAB PO PRN (21:29)
[2021-02-24] MEDS ORDERED: Acetaminophen 650 MG Suppository PR PRN (21:29)
[2021-02-24] MEDS ORDERED: Acetaminophen 325 MG TAB PO PRN (21:29)
[2021-02-24] MEDS ORDERED: Ondansetron PF 4 MG/2 ML Vial IVP PRN (21:29)
[2021-02-24] MEDS ORDERED: Ventilator Sedation Protocol 1 EACH FS SCH (21:30)
[2021-02-24] MEDS ORDERED: Midazolam HCl 5 mg/ml Vial ONE (21:37)
[2021-02-24] MEDS ORDERED: DISCONTINUE PREVIOUS NARCOTIC PAIN MEDICATIONS AND BENZODIAZEPINES FS SCH (22:00)
[2021-02-24] MEDS ORDERED: Propofol BOLUS 1,000 MG/100 ML VIAL IV PRN (22:00)
[2021-02-24] MEDS ORDERED: Potassium Chloride 40 MEQ in Premix Bag 1 BAG IVPB SCH (22:00)
[2021-02-24] MEDS ORDERED: Fentanyl BOLUS 250 ML IVPB PRN (22:00)
[2021-02-24] MEDS ORDERED: Propofol 1,000 MG/100 ML VIAL IV PRN (22:00)
[2021-02-24 22:23] LABS: SARS-CoV-2 NAA Rapid Test Not Detected (NotDetected)
[2021-02-24] MEDS ORDERED: Dextrose 5% in Water 1,000 ML IV PRN (22:30)
[2021-02-24] MEDS ORDERED: Dextrose 50% Abboject 50 ML SYRINGE SLOW IVP PRN (22:30)
[2021-02-24] MEDS ORDERED: HumaLOG 300 UNITS/3 ML VIAL SC PRN (22:30)
[2021-02-24] MEDS ORDERED: Piperacillin/Tazobactam 3.375 GM in Sodium Chloride 0.9% 100 ML IVPB SCH (22:45)
[2021-02-24 23:50] LABS: Magnesium 1.7 mg/dL (1.6-2.6)
[2021-02-25] MEDS ORDERED: Piperacillin/Tazobactam 3.375 GM in Sodium Chloride 0.9% 100 ML IVPB SCH (01:00)
[2021-02-25] MEDS ORDERED: Propofol 1,000 MG/100 ML VIAL IV ONE ×2 (01:23→14:11)
[2021-02-25] MEDS ORDERED: Vancomycin 1 GM in Premix Bag 1 BAG IVPB SCH (01:30)
[2021-02-25] MEDS ORDERED: Potassium Chloride 20 MEQ/100 ML PREMIX BAG ONE ×2 (02:37→02:38)
[2021-02-25] MEDS ORDERED: Piperacillin/Tazobactam 3.375 GM VIAL ONE ×2 (02:37→12:39)
[2021-02-25] MEDS: Potassium Chloride 20 MEQ in Premix Bag 1 BAG IVPB SCH ×2 (03:00→04:16)
[2021-02-25] MEDS ORDERED: HumaLOG 300 UNITS/3 ML VIAL ONE (07:43)
[2021-02-25] MEDS: HumaLOG 300 UNITS/3 ML VIAL SC PRN (07:45)
[2021-02-25 09:46] LABS: Mean Corpuscular HGB CONC 33.4 g/dL (32.0-36.0); Mean Corpuscular Hemoglobin 31.4 pg (27.0-31.0); Mean Corpuscular Volume 94.2 fL (78.0-98.0); RBC Distribution Width 12.2 % (11.5-14.5); Red Blood Cell (RBC) Count 3.49 mill/uL (4.20-5.40); White Blood Cell (WBC) Count 12.3 thou/uL (4.8-10.8)
[2021-02-25 09:49] LABS: Anion Gap 18 mmol/L (10-20); BUN (Urea Nitrogen) 43 mg/dL (9.8-20.1); Calc. Creatinine Clearance 63 mL/min (70-130); Calcium 9.7 mg/dL (7.8-10.44); Carbon Dioxide 25 mmol/L (22-29); Chloride 98 mmol/L (98-107); Glucose 179 mg/dL (70-105); Sodium 136 mmol/L (136-145)
[2021-02-25 09:52] LABS: #Lymphocytes 1.4 thou/uL (1.20-3.40); #Monocytes 0.6 thou/uL (0.11-0.59); #Neutrophils 10.3 thou/uL (1.40-6.50); %Basophils 0.1 % (0.0-1.0); %Eosinophils 0.1 % (0.0-10.0); %Lymphocytes 11.1 % (21.0-51.0); %Monocytes 4.8 % (0.0-10.0); Mean Platelet Volume 7.9 fL (7.4-10.4); Platelet Count 273 thou/uL (130-400)
[2021-02-25 10:22] LABS: Band 14 % (5-11); Lymphocytes 13 % (21-51); MDiff Complete? YES; Monocytes 6 % (0-10); Neutrophil 66 % (42-75); Polychromasia SLIGHT = 2-3 cells (100X) (0-2/hpf)
[2021-02-25] MEDS ORDERED: Dextrose 50% Abboject 50 ML SYRINGE SLOW IVP PRN (11:07)
[2021-02-25] MEDS ORDERED: Insulin Regular 300 UNITS/3 ML VIAL SC PRN (11:07)
[2021-02-25] MEDS ORDERED: Dextrose 5% in Water 1,000 ML IV PRN (11:07)
[2021-02-25] MEDS: Piperacillin/Tazobactam 3.375 GM in Sodium Chloride 0.9% 100 ML IVPB SCH ×2 (12:23→20:08)
[2021-02-25] MEDS: Lactated Ringer's 1,000 ML IV SCH ×2 (13:33→20:09)
[2021-02-25] MEDS: Heparin 5,000 UNITS/ML VIAL SC SCH ×2 (17:27→20:09)
[2021-02-25] MEDS ORDERED: Fentanyl CADD 100 ML ONE (21:25)
[2021-02-25] MEDS: Fentanyl CADD 100 ML IV SCH (21:27)
[2021-02-26] MEDS: VANCOMYCIN 1.25 GM/250 ML BAG 1.25 GM in Premix Bag 1 BAG IVPB SCH ×2 (00:13→23:00)
[2021-02-26] MEDS: Lactated Ringer's 1,000 ML IV SCH ×2 (01:24→15:25)
[2021-02-26] MEDS ORDERED: diphenhydrAMINE 50 MG/ML VIAL IVP SCH (03:15)
[2021-02-26] MEDS: Piperacillin/Tazobactam 3.375 GM in Sodium Chloride 0.9% 100 ML IVPB SCH ×4 (03:36→20:06)
[2021-02-26 04:39] LABS: #Lymphocytes 1.5 thou/uL (1.20-3.40); #Monocytes 0.7 thou/uL (0.11-0.59); #Neutrophils 8.5 thou/uL (1.40-6.50); %Basophils 0.1 % (0.0-1.0); %Eosinophils 0.1 % (0.0-10.0); %Lymphocytes 13.9 % (21.0-51.0); %Monocytes 6.9 % (0.0-10.0); Hemoglobin 8.7 g/dL (12.0-16.0); Mean Corpuscular HGB CONC 33.5 g/dL (32.0-36.0); Mean Corpuscular Hemoglobin 31.8 pg (27.0-31.0); Mean Corpuscular Volume 94.9 fL (78.0-98.0); Platelet Count 229 thou/uL (130-400); RBC Distribution Width 12.1 % (11.5-14.5); Red Blood Cell (RBC) Count 2.75 mill/uL (4.20-5.40); White Blood Cell (WBC) Count 10.8 thou/uL (4.8-10.8)
[2021-02-26 05:28] LABS: ALT (SGPT) 34 U/L (8-55); AST (SGOT) 45 U/L (5-34); Albumin 3.2 g/dL (3.5-5.0); Alkaline Phosphatase 176 U/L (40-110); Anion Gap 16 mmol/L (10-20); BUN (Urea Nitrogen) 45 mg/dL (9.8-20.1); Bilirubin, Total 0.5 mg/dL (0.2-1.2); Calc. Creatinine Clearance 60 mL/min (70-130); Calcium 9.2 mg/dL (7.8-10.44); Carbon Dioxide 29 mmol/L (22-29); Chloride 98 mmol/L (98-107); Globulin 3.2 g/dL (2.4-3.5); Glucose 146 mg/dL (70-105); Potassium 3.7 mmol/L (3.5-5.1); Protein, Total 6.4 g/dL (6.0-8.3); Sodium 139 mmol/L (136-145)
[2021-02-26 07:53] LABS: Actual Bicarbonate (HCO3a) 25.6 mEq/L (22-28); Base Excess (BEa) 3.2 mEq/L (-2.0 to +3.0); CO2 Tension 31.1 mmHg (35.0-45.0); Calcium, Ionized (arterial) 1.17 mmol/L (1.12-1.30); Carboxyhemoglobin (COHb) 0.3 gm% (0.0-3.0); Hemoglobin (Hb) 9.7 g/dL (12.0-16.0); O2 Tension (PaO2), arterial 149.2 mmHg (80.0-100.0); Potassium - ABG Lab 3.81 mmol/L (3.70-5.30); pH, Arterial 7.53 (7.35-7.45)
[2021-02-26 07:56] LABS: Puncture Site LRA
[2021-02-26 07:57] LABS: ALV-art Gradient 132.775 mmHg (0-20)
[2021-02-26] MEDS ORDERED: Dexamethasone 10 MG in Sodium Chloride 0.9% 50 ML IVPB SCH (09:00)
[2021-02-26] MEDS ORDERED: Dexamethasone 4 mg/ml Vial SLOW IVP SCH (09:15)
[2021-02-26] MEDS: Heparin 5,000 UNITS/ML VIAL SC SCH ×2 (09:27→20:08)
[2021-02-26] MEDS: Pantoprazole 40 MG VIAL IVP SCH (09:27)
[2021-02-26] MEDS ORDERED: Fentanyl CADD 100 ML ONE (11:41)
[2021-02-26] MEDS: Fentanyl CADD 100 ML IV SCH (11:54)
[2021-02-26] MEDS: HumaLOG 300 UNITS/3 ML VIAL SC PRN ×2 (16:36→20:31)
[2021-02-26 23:10] LABS: Vancomycin, Trough 15.2 ug/mL
[2021-02-27] MEDS: Gabapentin 300 MG CAP PO SCH ×4 (00:19→20:52)
[2021-02-27] MEDS: HumaLOG 300 UNITS/3 ML VIAL SC PRN ×2 (00:36→04:51)
[2021-02-27] MEDS: Melatonin 3 MG TAB PER TUBE PRN ×2 (00:40→20:52)
[2021-02-27] MEDS: traZODone HCl 50 MG TAB PER TUBE PRN ×2 (00:40→20:52)
[2021-02-27 03:44] LABS: #Lymphocytes 1.2 thou/uL (1.20-3.40); #Monocytes 0.6 thou/uL (0.11-0.59); #Neutrophils 7.6 thou/uL (1.40-6.50); %Basophils 0.1 % (0.0-1.0); %Eosinophils 0.2 % (0.0-10.0); %Lymphocytes 12.5 % (21.0-51.0); %Monocytes 6.3 % (0.0-10.0); %Neutrophils 80.8 % (42.0-75.0); Hemoglobin 9.1 g/dL (12.0-16.0); Mean Corpuscular HGB CONC 32.9 g/dL (32.0-36.0); Mean Corpuscular Hemoglobin 31.8 pg (27.0-31.0); Mean Corpuscular Volume 96.8 fL (78.0-98.0); Platelet Count 236 thou/uL (130-400); RBC Distribution Width 11.9 % (11.5-14.5); Red Blood Cell (RBC) Count 2.86 mill/uL (4.20-5.40); White Blood Cell (WBC) Count 9.4 thou/uL (4.8-10.8)
[2021-02-27] MEDS: Piperacillin/Tazobactam 3.375 GM in Sodium Chloride 0.9% 100 ML IVPB SCH ×3 (04:07→18:15)
[2021-02-27 04:11] LABS: ALT (SGPT) 86 U/L (8-55); AST (SGOT) 121 U/L (5-34); Albumin 3.4 g/dL (3.5-5.0); Alkaline Phosphatase 224 U/L (40-110); Anion Gap 13 mmol/L (10-20); BUN (Urea Nitrogen) 39 mg/dL (9.8-20.1); Bilirubin, Total 0.7 mg/dL (0.2-1.2); Calc. Creatinine Clearance 66 mL/min (70-130); Calcium 9.2 mg/dL (7.8-10.44); Carbon Dioxide 28 mmol/L (22-29); Chloride 103 mmol/L (98-107); Globulin 3.4 g/dL (2.4-3.5); Glucose 174 mg/dL (70-105); Potassium 3.8 mmol/L (3.5-5.1); Protein, Total 6.8 g/dL (6.0-8.3); Sodium 140 mmol/L (136-145)
[2021-02-27] MEDS ORDERED: Fentanyl CADD 100 ML ONE (05:36)
[2021-02-27] MEDS: Fentanyl CADD 100 ML IV SCH (05:47)
[2021-02-27] MEDS: Lactated Ringer's 1,000 ML IV SCH ×2 (06:26→19:58)
[2021-02-27] MEDS: Lorazepam 2 MG/ML VIAL SLOW IVP PRN ×2 (07:52→12:15)
[2021-02-27] MEDS: Heparin 5,000 UNITS/ML VIAL SC SCH ×2 (08:59→20:53)
[2021-02-27] MEDS: Pantoprazole 40 MG VIAL IVP SCH (08:59)
[2021-02-27] MEDS ORDERED: Midazolam HCl 5 mg/5 ml Vial ONE (13:07)
[2021-02-27] MEDS ORDERED: Lidocaine 1% w/Epinephrine 1:100K 20 ML VIAL ONE (13:42)
[2021-02-27] MEDS ORDERED: Fentanyl 100 MCG/2 ML VIAL ONE (14:25)
[2021-02-27] MEDS ORDERED: Glycopyrrolate 0.2 MG/ML 5 ML SYRINGE ONE (14:34)
[2021-02-27] MEDS ORDERED: Rocuronium Bromide 10 MG/ML (10ML VIAL) ONE (14:34)
[2021-02-27] MEDS: VANCOMYCIN 1.25 GM/250 ML BAG 1.25 GM in Premix Bag 1 BAG IVPB SCH (21:06)
[2021-02-27] MEDS ORDERED: Gabapentin 300 MG CAP PO SCH (23:45)
[2021-02-28] MEDS ORDERED: Fentanyl CADD 100 ML ONE (02:36)
[2021-02-28] MEDS: Fentanyl CADD 100 ML IV SCH (02:42)
[2021-02-28] MEDS: Piperacillin/Tazobactam 3.375 GM in Sodium Chloride 0.9% 100 ML IVPB SCH ×3 (02:43→18:30)
[2021-02-28] MEDS: Lactated Ringer's 1,000 ML IV SCH ×2 (02:44→11:37)
[2021-02-28 04:16] LABS: #Eosinphils 0.2 thou/uL (0.0-0.7); #Lymphocytes 1.2 thou/uL (1.20-3.40); #Monocytes 0.5 thou/uL (0.11-0.59); #Neutrophils 5.9 thou/uL (1.40-6.50); %Basophils 0.4 % (0.0-1.0); %Eosinophils 2.3 % (0.0-10.0); %Lymphocytes 14.8 % (21.0-51.0); %Monocytes 6.5 % (0.0-10.0); Hemoglobin 8.7 g/dL (12.0-16.0); Mean Corpuscular HGB CONC 34.1 g/dL (32.0-36.0); Mean Corpuscular Hemoglobin 33.2 pg (27.0-31.0); Mean Corpuscular Volume 97.6 fL (78.0-98.0); Mean Platelet Volume 7.7 fL (7.4-10.4); Platelet Count 173 thou/uL (130-400); RBC Distribution Width 11.9 % (11.5-14.5); White Blood Cell (WBC) Count 7.8 thou/uL (4.8-10.8)
[2021-02-28 04:40] LABS: ALT (SGPT) 96 U/L (8-55); AST (SGOT) 99 U/L (5-34); Alkaline Phosphatase 232 U/L (40-110); Anion Gap 13 mmol/L (10-20); BUN (Urea Nitrogen) 32 mg/dL (9.8-20.1); Bilirubin, Total 0.4 mg/dL (0.2-1.2); Calc. Creatinine Clearance 77 mL/min (70-130); Calcium 8.6 mg/dL (7.8-10.44); Carbon Dioxide 27 mmol/L (22-29); Chloride 106 mmol/L (98-107); Globulin 3.1 g/dL (2.4-3.5); Glucose 145 mg/dL (70-105); Potassium 3.7 mmol/L (3.5-5.1); Protein, Total 6.1 g/dL (6.0-8.3); Sodium 142 mmol/L (136-145)
[2021-02-28] MEDS: Gabapentin 300 MG CAP PO SCH ×3 (09:50→21:45)
[2021-02-28] MEDS: Heparin 5,000 UNITS/ML VIAL SC SCH ×2 (09:50→21:45)
[2021-02-28] MEDS: Pantoprazole 40 MG VIAL IVP SCH (09:52)
[2021-02-28] MEDS: Morphine 2 MG/ML VIAL SLOW IVP PRN ×2 (11:38→21:43)
[2021-02-28] MEDS: HumaLOG 300 UNITS/3 ML VIAL SC PRN ×2 (16:33→22:00)
[2021-02-28] MEDS: traZODone HCl 50 MG TAB PER TUBE PRN (21:44)
[2021-02-28 22:05] LABS: Vancomycin, Trough 19.1 ug/mL
[2021-03-01] MEDS: VANCOMYCIN 1.25 GM/250 ML BAG 1.25 GM in Premix Bag 1 BAG IVPB SCH ×2 (00:11→21:24)
[2021-03-01] MEDS: Piperacillin/Tazobactam 3.375 GM in Sodium Chloride 0.9% 100 ML IVPB SCH ×3 (03:39→18:14)
[2021-03-01 04:39] LABS: #Eosinphils 0.3 thou/uL (0.0-0.7); #Lymphocytes 1.3 thou/uL (1.20-3.40); #Monocytes 0.5 thou/uL (0.11-0.59); #Neutrophils 8.5 thou/uL (1.40-6.50); %Basophils 0.4 % (0.0-1.0); %Eosinophils 2.6 % (0.0-10.0); %Lymphocytes 12.5 % (21.0-51.0); %Monocytes 4.9 % (0.0-10.0); %Neutrophils 79.6 % (42.0-75.0); Hemoglobin 9.1 g/dL (12.0-16.0); Mean Corpuscular Hemoglobin 32.1 pg (27.0-31.0); Mean Corpuscular Volume 97.3 fL (78.0-98.0); Mean Platelet Volume 8.1 fL (7.4-10.4); Platelet Count 242 thou/uL (130-400); RBC Distribution Width 12.3 % (11.5-14.5); Red Blood Cell (RBC) Count 2.83 mill/uL (4.20-5.40); White Blood Cell (WBC) Count 10.7 thou/uL (4.8-10.8)
[2021-03-01 05:03] LABS: ALT (SGPT) 104 U/L (8-55); AST (SGOT) 77 U/L (5-34); Alkaline Phosphatase 274 U/L (40-110); Anion Gap 11 mmol/L (10-20); BUN (Urea Nitrogen) 24 mg/dL (9.8-20.1); Bilirubin, Total 0.3 mg/dL (0.2-1.2); Calc. Creatinine Clearance 87 mL/min (70-130); Calcium 8.6 mg/dL (7.8-10.44); Carbon Dioxide 27 mmol/L (22-29); Chloride 108 mmol/L (98-107); Glucose 121 mg/dL (70-105); Potassium 3.9 mmol/L (3.5-5.1); Sodium 142 mmol/L (136-145)
[2021-03-01] MEDS: Morphine 2 MG/ML VIAL SLOW IVP PRN (05:15)
[2021-03-01] MEDS: Pantoprazole 40 MG VIAL IVP SCH (09:20)
[2021-03-01] MEDS: Gabapentin 300 MG CAP PO SCH ×3 (09:20→21:21)
[2021-03-01] MEDS: Heparin 5,000 UNITS/ML VIAL SC SCH ×2 (09:20→21:19)
[2021-03-01] MEDS: Scopolamine 1.5 mg/72 hour Patch TD SCH (14:02)
[2021-03-01] MEDS: Melatonin 3 MG TAB PER TUBE PRN (22:26)
[2021-03-02] MEDS: Piperacillin/Tazobactam 3.375 GM in Sodium Chloride 0.9% 100 ML IVPB SCH ×3 (03:30→20:24)
[2021-03-02] MEDS: Levothyroxine Sodium 112 MCG TAB PER TUBE SCH (06:21)
[2021-03-02] MEDS: Gabapentin 300 MG CAP PO SCH ×3 (08:23→20:40)
[2021-03-02] MEDS: Pantoprazole 40 MG VIAL IVP SCH (08:24)
[2021-03-02] MEDS: FLUoxetine HCl 20 MG/5 ML UDCUP PER TUBE SCH (08:24)
[2021-03-02] MEDS: Heparin 5,000 UNITS/ML VIAL SC SCH ×2 (08:24→20:55)
[2021-03-02] MEDS ORDERED: ALPRAZolam 0.25 MG TAB PO SCH (16:00)
[2021-03-02] MEDS: traZODone HCl 50 MG TAB PER TUBE PRN (20:39)
[2021-03-02] MEDS: Melatonin 3 MG TAB PER TUBE PRN (20:40)
[2021-03-02] MEDS: VANCOMYCIN 1.25 GM/250 ML BAG 1.25 GM in Premix Bag 1 BAG IVPB SCH (22:44)
[2021-03-03] MEDS: Piperacillin/Tazobactam 3.375 GM in Sodium Chloride 0.9% 100 ML IVPB SCH ×2 (03:33→12:01)
[2021-03-03 04:28] LABS: #Basophils 0.1 thou/uL (0.0-0.2); #Eosinphils 0.5 thou/uL (0.0-0.7); #Lymphocytes 1.6 thou/uL (1.20-3.40); #Monocytes 0.4 thou/uL (0.11-0.59); #Neutrophils 4.8 thou/uL (1.40-6.50); %Basophils 0.8 % (0.0-1.0); %Eosinophils 6.5 % (0.0-10.0); %Lymphocytes 21.6 % (21.0-51.0); %Monocytes 4.9 % (0.0-10.0); %Neutrophils 66.2 % (42.0-75.0); Hemoglobin 9.4 g/dL (12.0-16.0); Mean Corpuscular HGB CONC 32.7 g/dL (32.0-36.0); Mean Corpuscular Hemoglobin 31.8 pg (27.0-31.0); Mean Corpuscular Volume 97.2 fL (78.0-98.0); Platelet Count 239 thou/uL (130-400); RBC Distribution Width 12.3 % (11.5-14.5); Red Blood Cell (RBC) Count 2.95 mill/uL (4.20-5.40); White Blood Cell (WBC) Count 7.2 thou/uL (4.8-10.8)
[2021-03-03 04:52] LABS: Anion Gap 13 mmol/L (10-20); BUN (Urea Nitrogen) 21 mg/dL (9.8-20.1); Calc. Creatinine Clearance 83 mL/min (70-130); Calcium 8.9 mg/dL (7.8-10.44); Carbon Dioxide 23 mmol/L (22-29); Chloride 107 mmol/L (98-107); Glucose 122 mg/dL (70-105); Potassium 4.1 mmol/L (3.5-5.1); Sodium 139 mmol/L (136-145)
[2021-03-03] MEDS: Levothyroxine Sodium 112 MCG TAB PER TUBE SCH (06:50)
[2021-03-03] MEDS: Heparin 5,000 UNITS/ML VIAL SC SCH ×2 (08:13→21:02)
[2021-03-03] MEDS: FLUoxetine HCl 20 MG/5 ML UDCUP PER TUBE SCH (08:13)
[2021-03-03] MEDS: Pantoprazole 40 MG VIAL IVP SCH (08:13)
[2021-03-03] MEDS: Gabapentin 300 MG CAP PO SCH ×3 (08:13→20:54)
[2021-03-03] MEDS: ALPRAZolam 0.25 MG TAB PO PRN (08:13)
[2021-03-03] MEDS: Melatonin 3 MG TAB PER TUBE PRN (20:53)
[2021-03-03] MEDS: traZODone HCl 50 MG TAB PER TUBE PRN (20:54)
[2021-03-03 22:08] LABS: Vancomycin, Trough 17.5 ug/mL
[2021-03-03] MEDS: VANCOMYCIN 1.25 GM/250 ML BAG 1.25 GM in Premix Bag 1 BAG IVPB SCH (22:10)
[2021-03-03] MEDS: Acetaminophen/Codeine 30-300mg Tablet PO PRN (22:18)
[2021-03-04] MEDS: ALPRAZolam 0.25 MG TAB PO PRN ×2 (03:44→14:25)
[2021-03-04] MEDS: Levothyroxine Sodium 112 MCG TAB PER TUBE SCH (06:29)
[2021-03-04] MEDS: Heparin 5,000 UNITS/ML VIAL SC SCH ×2 (08:30→20:02)
[2021-03-04] MEDS: FLUoxetine HCl 20 MG/5 ML UDCUP PER TUBE SCH (08:30)
[2021-03-04] MEDS: Gabapentin 300 MG CAP PO SCH ×3 (08:31→20:01)
[2021-03-04] MEDS: Acetaminophen/Codeine 30-300mg Tablet PO PRN ×2 (08:58→20:00)
[2021-03-04] MEDS: Scopolamine 1.5 mg/72 hour Patch TD SCH (11:11)
[2021-03-04 18:30] LABS: SARS-CoV-2 PCR by NAA Not Detected (NotDetected)
[2021-03-04] MEDS: VANCOMYCIN 1.25 GM/250 ML BAG 1.25 GM in Premix Bag 1 BAG IVPB SCH (21:32)
[2021-03-05] MEDS: ALPRAZolam 0.25 MG TAB PO PRN ×2 (00:58→20:02)
[2021-03-05] MEDS: Acetaminophen/Codeine 30-300mg Tablet PO PRN ×3 (05:16→22:02)
[2021-03-05] MEDS: Levothyroxine Sodium 112 MCG TAB PER TUBE SCH (06:05)
[2021-03-05] MEDS: FLUoxetine HCl 20 MG/5 ML UDCUP PER TUBE SCH (08:08)
[2021-03-05] MEDS: Gabapentin 300 MG CAP PO SCH ×3 (08:09→20:02)
[2021-03-05] MEDS: Heparin 5,000 UNITS/ML VIAL SC SCH ×2 (08:09→20:11)
[2021-03-05] MEDS: VANCOMYCIN 1.25 GM/250 ML BAG 1.25 GM in Premix Bag 1 BAG IVPB SCH (22:11)
[2021-03-06] MEDS: Levothyroxine Sodium 112 MCG TAB PER TUBE SCH (06:24)
[2021-03-06] MEDS: Gabapentin 300 MG CAP PO SCH ×3 (08:25→20:53)
[2021-03-06] MEDS: FLUoxetine HCl 20 MG/5 ML UDCUP PER TUBE SCH (08:25)
[2021-03-06] MEDS: Heparin 5,000 UNITS/ML VIAL SC SCH ×2 (08:25→20:54)
[2021-03-06] MEDS: Acetaminophen/Codeine 30-300mg Tablet PO PRN (09:03)
[2021-03-06] MEDS ORDERED: Lidocaine 3%/Hydrocortisone 0.5% CREAM TP PRN (09:24)
[2021-03-06] MEDS: Lidocaine/Transparent Dressing 1 EACH KIT TP PRN (17:33)
[2021-03-06] MEDS: traZODone HCl 50 MG TAB PER TUBE PRN (21:07)
[2021-03-06] MEDS: ALPRAZolam 0.25 MG TAB PO PRN (21:13)
[2021-03-07] MEDS: Levothyroxine Sodium 112 MCG TAB PER TUBE SCH (06:04)
[2021-03-07] MEDS: FLUoxetine HCl 20 MG/5 ML UDCUP PER TUBE SCH (08:54)
[2021-03-07] MEDS: Heparin 5,000 UNITS/ML VIAL SC SCH ×2 (08:54→20:04)
[2021-03-07] MEDS: Acetaminophen/Codeine 30-300mg Tablet PO PRN ×2 (08:54→19:41)
[2021-03-07] MEDS: Gabapentin 300 MG CAP PO SCH ×3 (08:54→20:03)
[2021-03-07] MEDS: Lidocaine/Transparent Dressing 1 EACH KIT TP PRN (09:32)
[2021-03-07] MEDS ORDERED: Iopamidol-370 76% 500 ML 1 ML ONE (12:01)
[2021-03-07] MEDS: Scopolamine 1.5 mg/72 hour Patch TD SCH (13:43)
[2021-03-07] MEDS: ALPRAZolam 0.25 MG TAB PO PRN (14:24)
[2021-03-07] MEDS: Melatonin 3 MG TAB PER TUBE PRN (21:33)
[2021-03-07] MEDS: traZODone HCl 50 MG TAB PER TUBE PRN (21:33)
[2021-03-08] MEDS: Acetaminophen/Codeine 30-300mg Tablet PO PRN ×3 (06:29→19:23)
[2021-03-08] MEDS: Levothyroxine Sodium 112 MCG TAB PER TUBE SCH (06:29)
[2021-03-08] MEDS: FLUoxetine HCl 20 MG/5 ML UDCUP PER TUBE SCH (09:31)
[2021-03-08] MEDS: Gabapentin 300 MG CAP PO SCH ×3 (09:31→19:22)
[2021-03-08] MEDS: Heparin 5,000 UNITS/ML VIAL SC SCH ×2 (09:32→19:22)
[2021-03-08] MEDS: Lidocaine/Transparent Dressing 1 EACH KIT TP PRN ×2 (12:27→19:25)
[2021-03-08] MEDS: ALPRAZolam 0.25 MG TAB PO PRN (15:27)
[2021-03-08] MEDS: traZODone HCl 50 MG TAB PER TUBE PRN (21:02)
[2021-03-08] MEDS: Melatonin 3 MG TAB PER TUBE PRN (21:02)
[2021-03-09 03:40] LABS: #Eosinphils 0.3 thou/uL (0.0-0.7); #Lymphocytes 1.9 thou/uL (1.20-3.40); #Monocytes 0.4 thou/uL (0.11-0.59); #Neutrophils 4.8 thou/uL (1.40-6.50); %Basophils 0.6 % (0.0-1.0); %Eosinophils 3.4 % (0.0-10.0); %Lymphocytes 25.2 % (21.0-51.0); %Monocytes 5.7 % (0.0-10.0); %Neutrophils 65.1 % (42.0-75.0); Hemoglobin 9.8 g/dL (12.0-16.0); Mean Corpuscular HGB CONC 34.7 g/dL (32.0-36.0); Mean Corpuscular Hemoglobin 33.3 pg (27.0-31.0); Mean Corpuscular Volume 95.8 fL (78.0-98.0); Mean Platelet Volume 7.5 fL (7.4-10.4); Platelet Count 270 thou/uL (130-400); RBC Distribution Width 13.3 % (11.5-14.5); Red Blood Cell (RBC) Count 2.94 mill/uL (4.20-5.40); White Blood Cell (WBC) Count 7.4 thou/uL (4.8-10.8)
[2021-03-09 03:59] LABS: Anion Gap 14 mmol/L (10-20); BUN (Urea Nitrogen) 25 mg/dL (9.8-20.1); Calc. Creatinine Clearance 68 mL/min (70-130); Calcium 9.3 mg/dL (7.8-10.44); Carbon Dioxide 23 mmol/L (22-29); Chloride 105 mmol/L (98-107); Glucose 135 mg/dL (70-105); Magnesium 2.2 mg/dL (1.6-2.6); Phosphorus 5.8 mg/dL (2.3-4.7); Potassium 4.2 mmol/L (3.5-5.1); Sodium 138 mmol/L (136-145)
[2021-03-09] MEDS: Levothyroxine Sodium 112 MCG TAB PER TUBE SCH (06:42)
[2021-03-09] MEDS: Gabapentin 300 MG CAP PO SCH ×3 (07:48→20:54)
[2021-03-09] MEDS: Acetaminophen/Codeine 30-300mg Tablet PO PRN ×2 (07:48→18:22)
[2021-03-09] MEDS: FLUoxetine HCl 20 MG/5 ML UDCUP PER TUBE SCH (07:48)
[2021-03-09] MEDS: Heparin 5,000 UNITS/ML VIAL SC SCH ×2 (07:49→21:57)
[2021-03-09] MEDS: Lidocaine/Transparent Dressing 1 EACH KIT TP PRN (10:27)
[2021-03-09] MEDS: ALPRAZolam 0.25 MG TAB PO PRN (13:22)
[2021-03-09] MEDS: traZODone HCl 50 MG TAB PER TUBE PRN (20:57)
[2021-03-09] MEDS: Melatonin 3 MG TAB PER TUBE PRN (20:58)
[2021-03-10] MEDS: Levothyroxine Sodium 112 MCG TAB PER TUBE SCH (05:58)
[2021-03-10] MEDS: Acetaminophen/Codeine 30-300mg Tablet PO PRN ×2 (06:53→19:53)
[2021-03-10] MEDS: Gabapentin 300 MG CAP PO SCH ×3 (09:08→21:25)
[2021-03-10] MEDS: FLUoxetine HCl 20 MG/5 ML UDCUP PER TUBE SCH (09:08)
[2021-03-10] MEDS: Heparin 5,000 UNITS/ML VIAL SC SCH ×2 (09:08→21:26)
[2021-03-10] MEDS: Saccharomyces boulardii 250 MG CAP PO SCH (09:12)
[2021-03-10] MEDS: ALPRAZolam 0.25 MG TAB PO PRN (13:07)
[2021-03-10] MEDS: Scopolamine 1.5 mg/72 hour Patch TD SCH (13:08)
[2021-03-10] MEDS: Melatonin 3 MG TAB PER TUBE PRN (21:26)
[2021-03-10] MEDS: traZODone HCl 50 MG TAB PER TUBE PRN (21:26)
[2021-03-11] MEDS: Acetaminophen/Codeine 30-300mg Tablet PO PRN ×3 (03:29→19:44)
[2021-03-11] MEDS: Levothyroxine Sodium 112 MCG TAB PER TUBE SCH (06:24)
[2021-03-11] MEDS: Gabapentin 300 MG CAP PO SCH ×3 (09:10→21:07)
[2021-03-11] MEDS: Heparin 5,000 UNITS/ML VIAL SC SCH ×2 (09:10→21:08)
[2021-03-11] MEDS: FLUoxetine HCl 20 MG/5 ML UDCUP PER TUBE SCH (09:10)
[2021-03-11] MEDS: Saccharomyces boulardii 250 MG CAP PO SCH (09:10)
[2021-03-11] MEDS: ALPRAZolam 0.25 MG TAB PO PRN (15:20)
[2021-03-11] MEDS: Melatonin 3 MG TAB PER TUBE PRN (21:07)
[2021-03-11] MEDS: traZODone HCl 50 MG TAB PER TUBE PRN (21:07)
[2021-03-12] MEDS: Levothyroxine Sodium 112 MCG TAB PER TUBE SCH (06:31)
[2021-03-12] MEDS: Acetaminophen/Codeine 30-300mg Tablet PO PRN ×2 (06:31→19:19)
[2021-03-12] MEDS: Saccharomyces boulardii 250 MG CAP PO SCH (09:36)
[2021-03-12] MEDS: Gabapentin 300 MG CAP PO SCH ×3 (09:36→21:18)
[2021-03-12] MEDS: FLUoxetine HCl 20 MG/5 ML UDCUP PER TUBE SCH (09:36)
[2021-03-12] MEDS: Heparin 5,000 UNITS/ML VIAL SC SCH ×2 (09:37→21:20)
[2021-03-12] MEDS ORDERED: Benzocaine 20% Spray 60 ML CAN ONE (12:04)
[2021-03-12] MEDS ORDERED: Lidocaine 1% (PF) 30 ML VIAL ONE (12:04)
[2021-03-12] MEDS ORDERED: Ketamine 50 MG/ML (10ML VIAL) ONE (12:33)
[2021-03-12] MEDS ORDERED: Midazolam HCl 2 mg/2 ml Vial ONE (12:53)
[2021-03-12] MEDS ORDERED: PROPOFOL 200 MG/20 ML VIAL ONE (13:00)
[2021-03-12] MEDS ORDERED: Labetalol HCl 100 MG/20 ML VIAL ONE (13:00)
[2021-03-12 13:53] LABS: #Basophils 0.1 thou/uL (0.0-0.2); #Eosinphils 0.1 thou/uL (0.0-0.7); #Lymphocytes 2.3 thou/uL (1.20-3.40); #Monocytes 0.4 thou/uL (0.11-0.59); #Neutrophils 4.7 thou/uL (1.40-6.50); %Basophils 1.3 % (0.0-1.0); %Eosinophils 1.9 % (0.0-10.0); %Lymphocytes 30.4 % (21.0-51.0); %Monocytes 5.2 % (0.0-10.0); %Neutrophils 61.3 % (42.0-75.0); Hemoglobin 10.8 g/dL (12.0-16.0); Mean Corpuscular HGB CONC 34.7 g/dL (32.0-36.0); Mean Corpuscular Hemoglobin 32.8 pg (27.0-31.0); Mean Corpuscular Volume 94.6 fL (78.0-98.0); Mean Platelet Volume 7.3 fL (7.4-10.4); Platelet Count 263 thou/uL (130-400); RBC Distribution Width 13.6 % (11.5-14.5); Red Blood Cell (RBC) Count 3.28 mill/uL (4.20-5.40); White Blood Cell (WBC) Count 7.7 thou/uL (4.8-10.8)
[2021-03-12 16:44] LABS: Anion Gap 15 mmol/L (10-20); BUN (Urea Nitrogen) 24 mg/dL (9.8-20.1); Calc. Creatinine Clearance 54 mL/min (70-130); Calcium 10.2 mg/dL (7.8-10.44); Carbon Dioxide 24 mmol/L (22-29); Chloride 105 mmol/L (98-107); Glucose 95 mg/dL (70-105); Potassium 4.6 mmol/L (3.5-5.1); Sodium 139 mmol/L (136-145)
[2021-03-12] MEDS: ALPRAZolam 0.25 MG TAB PO PRN (19:19)
[2021-03-12] MEDS: traZODone HCl 50 MG TAB PER TUBE PRN (21:19)
[2021-03-12] MEDS: Melatonin 3 MG TAB PER TUBE PRN (21:19)
[2021-03-13] MEDS: Levothyroxine Sodium 112 MCG TAB PER TUBE SCH (03:25)
[2021-03-13] MEDS: Acetaminophen/Codeine 30-300mg Tablet PO PRN ×3 (03:25→15:54)
[2021-03-13] MEDS ORDERED: ALPRAZolam 0.25 MG TAB PO PRN (06:09)
[2021-03-13] MEDS: FLUoxetine HCl 20 MG/5 ML UDCUP PER TUBE SCH (09:35)
[2021-03-13] MEDS: Saccharomyces boulardii 250 MG CAP PO SCH (09:36)
[2021-03-13] MEDS: Gabapentin 300 MG CAP PO SCH ×2 (09:36→15:53)
[2021-03-13] MEDS: Heparin 5,000 UNITS/ML VIAL SC SCH (09:37)
[2021-03-13 13:08] VITALS: BMI 39.6
[2021-03-13] MEDS: Scopolamine 1.5 mg/72 hour Patch TD SCH (15:55)
[2021-03-13 16:26] VITALS: BP 146/94; TEMP 98
== END 2021-03-13 17:40 | disposition home or self-care (01) | DRG 4 ==
LOC: ERS 18:14 → ERHOLD 21:16 → CCU 02-25 18:56 → IMCU/EMU 03-02 09:19 → T4-B 03-12 17:55
PROVIDERS: ADMIT Student in an Organized Health Care Education/Training Program; ATTEND Internal Medicine
PROC: 5A1945Z Respiratory Ventilation, 24-96 Consecutive Hours (ICD-10-PCS; principal; 2021-02-24)
PROC: 02H633Z Insertion of Infusion Device into Right Atrium, Percutaneous Approach (ICD-10-PCS; 2021-02-24)
PROC: B548ZZA Ultrasonography of Superior Vena Cava, Guidance (ICD-10-PCS; 2021-02-24)
PROC: 0D9670Z Drainage of Stomach with Drainage Device, Via Natural or Artificial Opening (ICD-10-PCS; 2021-02-24)
PROC: 0W9G30Z Drainage of Peritoneal Cavity with Drainage Device, Percutaneous Approach (ICD-10-PCS; 2021-02-24)
PROC: 3E043XZ Introduction of Vasopressor into Central Vein, Percutaneous Approach (ICD-10-PCS; 2021-02-24)
PROC: 3E0333Z Introduction of Anti-inflammatory into Peripheral Vein, Percutaneous Approach (ICD-10-PCS; 2021-02-24)
PROC: 0B110F4 Bypass Trachea to Cutaneous with Tracheostomy Device, Open Approach (ICD-10-PCS; 2021-02-27)
PROC: 0CJS8ZZ Inspection of Larynx, Via Natural or Artificial Opening Endoscopic (ICD-10-PCS; 2021-02-27)
PROC: 8E0ZXY6 Isolation (ICD-10-PCS; 2021-03-10)
PROC: 0BJ08ZZ Inspection of Tracheobronchial Tree, Via Natural or Artificial Opening Endoscopic (ICD-10-PCS; 2021-03-12)
DX: A41.9 Sepsis, unspecified organism (principal); J96.21 Acute and chronic respiratory failure with hypoxia; G93.41 Metabolic encephalopathy; J18.9 Pneumonia, unspecified organism; J95.03 Malfunction of tracheostomy stoma; Z68.41 Body mass index [BMI] 40.0-44.9, adult; E66.01 Morbid (severe) obesity due to excess calories; J04.10 Acute tracheitis without obstruction; B95.62 Methicillin resistant Staphylococcus aureus infection as the cause of diseases classified elsewhere; Z20.822 Contact with and (suspected) exposure to COVID-19; E78.5 Hyperlipidemia, unspecified; E78.00 Pure hypercholesterolemia, unspecified; E03.9 Hypothyroidism, unspecified; F41.9 Anxiety disorder, unspecified; M19.90 Unspecified osteoarthritis, unspecified site; U09.9 Post COVID-19 condition, unspecified; E87.6 Hypokalemia; T81.82XA Emphysema (subcutaneous) resulting from a procedure, initial encounter; Y84.8 Other medical procedures as the cause of abnormal reaction of the patient, or of later complication, without mention of misadventure at the time of the procedure; E11.22 Type 2 diabetes mellitus with diabetic chronic kidney disease; N18.30 Chronic kidney disease, stage 3 unspecified; R13.10 Dysphagia, unspecified; J38.00 Paralysis of vocal cords and larynx, unspecified; J39.8 Other specified diseases of upper respiratory tract; J38.6 Stenosis of larynx; R19.7 Diarrhea, unspecified; Z93.1 Gastrostomy status; Z78.1 Physical restraint status; Z90.49 Acquired absence of other specified parts of digestive tract; Z87.891 Personal history of nicotine dependence; Z79.899 Other long term (current) drug therapy; Z79.4 Long term (current) use of insulin; Z79.890 Hormone replacement therapy; G47.00 Insomnia, unspecified
CPT/HCPCS: 0240U; 36415; 36416; 36556; 36600; 51702; 70450; 70490; 70491; 71045; 71275; 72125; 74177; 80048; 80053; 80202; 81003; 81015; 82565; 82805; 83605; 83735; 84100; 84484; 85025; 87040; 87070; 87077; 87086; 87186; 87205; 93005; 94002; 94003; 94640; 94760; 96365; 96366; 96368; 96375; C9113; J1100; J1200; J1644; J1815; J2001; J2060; J2250; J2270; J2543; J2704; J3010; J3370; J3480; J3490; J7120; Q9967; U0003; U0005

== ENCOUNTER 2021-07-31 12:51 | Outpatient (CLI) | payer OTHER | END 2021-07-31 12:52 | disposition home or self-care (01) | LOC: SCSRAD 12:51 | PROVIDERS: ATTEND Internal Medicine | DX: Z02.71 Encounter for disability determination (principal); M47.816 Spondylosis without myelopathy or radiculopathy, lumbar region; M51.37 Other intervertebral disc degeneration, lumbosacral region; M48.07 Spinal stenosis, lumbosacral region | CPT/HCPCS: 72100 ==